=== PATIENT | female | born 1980 | race Caucasian/White ===

== ENCOUNTER 2020-08-14 16:21 | Emergency (ER) | payer BC, OTHER ==
[~2020-08-14] VITALS: Ht 172.7 cm; Wt 81.7 kg
[2020-08-14] MEDS ORDERED: HALOPERIDOL 5MG/ML VIAL (J1630 PER 1) IV ONE (19:30)
[2020-08-14] MEDS ORDERED: NS 500 ML IV ONE (19:35)
[2020-08-14 20:31] LABS: BASO % 0.3 % (0.0-1.0); EOS # 0.1 10^3/uL (0.0-0.5); EOS % 0.8 % (0.0-3.0); HEMATOCRIT 40.3 % (36.0-47.0); HEMOGLOBIN 13.2 g/dl (12.0-15.5); LYMPH # 1.9 10^3/uL (1.5-5.0); LYMPH % 21.5 % (24.0-44.0); MEAN CORPUSCULAR HEMOGLOBIN 31.4 pg (27.0-33.0); MEAN CORPUSCULAR HGB CONC 32.8 g/dl (32.0-36.5); MONO # 0.6 10^3/uL (0.0-0.8); MONO % 7.2 % (2.0-8.0); NEUTROPHILS # 6.1 10^3/uL (1.5-8.5); NEUTROPHILS % 69.7 % (36.0-66.0); PLATELET COUNT, AUTOMATED 289 10^3/uL (150-450); WHITE BLOOD COUNT 8.8 10^3/uL (4.0-10.0)
[2020-08-14 21:04] LABS: BLOOD UREA NITROGEN 7 MG/DL (7-18); CALCIUM LEVEL 8.6 MG/DL (8.5-10.1); CARBON DIOXIDE LEVEL 23 MEQ/L (21-32); CHLORIDE LEVEL 107 MEQ/L (98-107); CREATININE FOR GFR 0.59 MG/DL (0.55-1.30); GLOMERULAR FILTRATION RATE > 60.0 (>58); GLUCOSE, FASTING 86 MG/DL (70-100); POTASSIUM SERUM 3.2 MEQ/L (3.5-5.1); SODIUM LEVEL 138 MEQ/L (136-145)
[2020-08-14] MEDS ORDERED: VANCOMYCIN ORAL SOL 250MG/5ML ORAL SYRINGE PO ONE (23:00)
[2020-08-14] MEDS ORDERED: HYDR-4517 PO (23:05)
[2020-08-14] MEDS ORDERED: SYNT112T2 PO (23:05)
[2020-08-14] MEDS ORDERED: XANA0.5T PO (23:05)
[2020-08-14] MEDS ORDERED: TOPI200T7 PO (23:05)
[2020-08-14] MEDS ORDERED: CELE40TA PO (23:05)
[2020-08-14] MEDS ORDERED: CARI1TAB7 PO (23:05)
[2020-08-14] MEDS ORDERED: VANC125C3 PO (23:12)
[2020-08-14 23:27] VITALS: BP 112/53
== END 2020-08-14 23:00 | disposition home or self-care (01) ==
LOC: M ED 16:21
DX: R19.7 Diarrhea, unspecified (principal); B96.7 Clostridium perfringens [C. perfringens] as the cause of diseases classified elsewhere; G89.29 Other chronic pain; M54.2 Cervicalgia; Z79.899 Other long term (current) drug therapy; Z79.890 Hormone replacement therapy
CPT/HCPCS: 36415; 80048; 81001; 85025; 87505; 96361; 96374; 99284; J1630